=== PATIENT | male | born 1955 | race Caucasian/White ===

== ENCOUNTER 2020-05-17 13:57 | Day surgery (SDC) | payer OTHER ==
[2020-05-17] MEDS ORDERED: Xylocaine 1% Vial 30 ML PF IJ ONE (13:58)
[2020-05-17] MEDS ORDERED: Marcaine 0.5% SDV 10 ML IJ ONE (13:58)
[2020-05-17] MEDS ORDERED: Depo-Medrol 40 MG/ML IM ONE (13:58)
--- NOTE | 2020-05-17 16:55 | XRAY ---
Indication: Right shoulder injection. Intraoperative fluoroscopy was provided for 14 seconds. Single digital spot image submitted for interpretation demonstrates needle tip projecting over the right glenohumeral joint superiorly. Small amount of contrast injected for needle tip placement. Correlate with intraoperative findings/report.
--- NOTE | 2020-05-17 17:18 | XRAY ---
14 seconds of fluoroscopy was used in surgery for a right intra-articular shoulder injection.
== END 2020-05-17 16:02 | disposition home or self-care (01) ==
LOC: SDC-PAIN 13:57
PROVIDERS: ATTEND Psychiatry & Neurology Pain Medicine
DX: M19.011 Primary osteoarthritis, right shoulder (principal); M06.9 Rheumatoid arthritis, unspecified; E11.9 Type 2 diabetes mellitus without complications; I10 Essential (primary) hypertension; Z79.899 Other long term (current) drug therapy
CPT/HCPCS: 20610; 73030; 77002; 82962; J1030; J2001; Q9966

== ENCOUNTER 2021-06-06 16:43 | Day surgery (SDC) | payer OTHER ==
[2021-06-06] MEDS ORDERED: BUPIVACAINE 0.5% VIAL IJ ONE (16:44)
[2021-06-06] MEDS ORDERED: Xylocaine 1% Vial 30 ML PF IJ ONE (16:44)
[2021-06-06] MEDS ORDERED: Depo-Medrol 40 MG/ML IM ONE (16:44)
--- NOTE | 2021-06-06 20:56 | XRAY ---
Indication: Right shoulder injection. Intraoperative fluoroscopy provided for 16 seconds. Single digital spot image submitted for interpretation demonstrates needle tip projecting over the right glenohumeral joint superiorly. Small amount of contrast injected for needle tip placement. Correlate with intraoperative findings/report.
--- NOTE | 2021-06-06 20:58 | XRAY ---
Indication: Left shoulder injection. Intraoperative fluoroscopy provided for 9 seconds. Single digital spot image submitted for interpretation demonstrates needle tip projecting over the left glenohumeral joint superiorly. Small amount of contrast injected for needle tip placement. Correlate with intraoperative findings/report.
--- NOTE | 2021-06-07 08:46 | XRAY ---
9 seconds of fluoroscopy was used in surgery for a left intra-articular shoulder injection.
--- NOTE | 2021-06-07 08:54 | XRAY ---
16 seconds of fluoroscopy was used in surgery for a right intra-articular shoulder injection.
== END 2021-06-06 19:10 | disposition home or self-care (01) ==
LOC: SDC-PAIN 16:43
PROVIDERS: ATTEND Psychiatry & Neurology Pain Medicine
DX: M19.012 Primary osteoarthritis, left shoulder (principal); M19.011 Primary osteoarthritis, right shoulder; E11.9 Type 2 diabetes mellitus without complications; Z79.899 Other long term (current) drug therapy
CPT/HCPCS: 20610; 73030; 77002; 82947; J1030; J2001; Q9966